=== PATIENT | male | born 1975 | race Caucasian/White ===

== ENCOUNTER 2020-11-10 14:48 | Emergency (ER) | payer OTHER ==
[~2020-11-10 14:48] MED LIST: PERCOCET 7.5-31 EACH PO
[2020-11-10 15:55] LABS: HEMOGLOBIN 16.3 gm/dl (14.0-17.5); RED BLOOD COUNT 5.22 M/UL (4.20-5.50); WHITE BLOOD COUNT 8.4 K/UL (4.5-11.0)
[2020-11-10 16:17] LABS: BUN/CREATININE RATIO 20 (0-10)
== END 2020-11-10 17:54 | disposition home or self-care (01) ==
LOC: ER1 14:48
PROVIDERS: Family Medicine
DX: R20.8 Other disturbances of skin sensation (principal); E11.9 Type 2 diabetes mellitus without complications; E78.5 Hyperlipidemia, unspecified; Z20.822 Contact with and (suspected) exposure to COVID-19; F17.290 Nicotine dependence, other tobacco product, uncomplicated; Z79.84 Long term (current) use of oral hypoglycemic drugs; Z79.899 Other long term (current) drug therapy
CPT/HCPCS: 0240U; 71045; 80053; 82550; 82553; 83735; 83874; 84439; 84443; 84484; 85025; 93005; 99284

== ENCOUNTER 2020-11-12 06:57 | Emergency (ER) | payer OTHER ==
[2020-11-12 07:52] LABS: BUN/CREATININE RATIO 13 (0-10)
[2020-11-12 07:59] LABS: HEMOGLOBIN 16.7 gm/dl (14.0-17.5); RED BLOOD COUNT 5.42 M/UL (4.20-5.50); WHITE BLOOD COUNT 7.6 K/UL (4.5-11.0)
== END 2020-11-12 09:05 | disposition other institution (70) ==
LOC: ER1 06:57
PROVIDERS: Emergency Medicine
DX: I62.02 Nontraumatic subacute subdural hemorrhage (principal); E11.9 Type 2 diabetes mellitus without complications
CPT/HCPCS: 70450; 71045; 80053; 80307; 81001; 82550; 82553; 83690; 84484; 85025; 85379; 93005; 99285

== ENCOUNTER → 2021-01-10 | Outpatient (CLI) | payer OTHER | LOC: US 08:31 | DX: K76.0 Fatty (change of) liver, not elsewhere classified (principal) | CPT/HCPCS: 76705 ==